=== PATIENT | male | born 1980 | race Caucasian/White ===

== ENCOUNTER 2022-10-30 01:44 | Emergency (ER) | payer OTHER, SELFPAY ==
[2022-10-30 02:01] VITALS: BP 113/67; PULSE 74; RESP 18; TEMP 36.6; O2SAT 98; BMI 18.6
--- NOTE | 2022-10-30 02:17 | W.ED.PSYCHS ---
HPI - Psych General: Chief Complaint: Psychiatric Symptoms Stated Complaint: Wants to be 89 Time Seen by Provider: 10/30/22 02:17 History of Present Illness: Mr. Shi is a 42-year-old male with history of depression not currently on medications presenting to the emergency department with depression and suicidal ideation. He reports worsening symptoms for few months and he felt more suicidal tonight. He denies a specific plan but says he would do it one way or another . He notes associated poor sleep and appetite with his depression. Overall course of symptoms has worsened. Intensity is severe. He has issues with chronic pain however no other acute medical concerns. Supplemental information provided by law enforcement is that his stated he was carrying around a gun earlier and put in a backpack which she managed to take away from him. Onset (ago): month(s) Duration: getting worse History of same: Yes Relieving factors: none Exacerbating factors: none Context: significant life stressor Associated psychiatric symptoms: depression and suicidal ideation Associated symptoms: Reports no associated symptoms Review of Systems General: Reports: 10 or more systems reviewed and unremarkable except in HPI and below PFSH ED PFSH: Medical History Degenerative disc disease History of MRSA infection Social History Smoking and tobacco status: current every day smoker Physical Exam Const: COMMON NORMALS: alert GENERAL APPEARANCE: cooperative and well developed HENMT: COMMON NORMALS: normocephalic and atraumatic HEAD & SCALP: normocephalic and atraumatic Eye: COMMON NORMALS: conjunctivae normal CONJUNCTIVA: Yes conjunctivae normal SCLERA: sclerae normal Neck/C-Spine: COMMON NORMALS: supple GENERAL: Yes trachea midline Resp: COMMON NORMALS: clear to auscultation bilaterally EFFORT & INSPECTION: Yes able to speak in complete sentences AUSCULTATION: clear to auscultation bilaterally Cardio: COMMON NORMALS: regular rate and regular rhythm RATE: regular rate RHYTHM: regular rhythm GI: COMMON NORMALS: Soft to palpation PALPATION: Yes Soft to palpation and No Tenderness to palpation present (GI) Extremity: GENERAL: Yes normal exam except as noted and No edema Neuro: COMMON NORMALS: moves all extremities SENSORIUM/ORIENTATION: Yes alert and No Orientation impaired Psych: COMMON NORMALS: mental status grossly normal and Normal thought process present MOOD & AFFECT: Yes depressed mood THOUGHT PROCESS: Normal thought process present THOUGHT CONTENT: Yes Suicidality present and No Hallucination(s) present Course Vital Signs: Vital signs: Vital Signs Temperature 98 F 10/30/22 02:01 Pulse Rate 82 10/30/22 20:39 Respiratory Rate 16 10/30/22 20:39 Blood Pressure 105/65 10/30/22 16:00 Pulse Oximetry 97 10/30/22 16:00 Oxygen Delivery Me thod 10/30/22 02:01 [facility] - Psych Medical Decision Making 42-year-old gentleman with history of depression not currently on treatment presenting to the emergency department for worsening suicidal ideation. Patient is calm, cooperative, nontoxic in appearance. EKG shows sinus rhythm with no STEMI. Unremarkable hematologic and metabolic panel. No evidence of urinary tract infection. TSH normal. Toxic ingestions negative. UDS only positive for THC which the patient endorses having a medical card for. Chest x-ray with no lobar consolidation or pneumothorax. Given severity of symptoms including significant suicidal ideation with possible actions of furtherance I believe that inpatient management is appropriate. Based on ED evaluation at this point there is no obvious condition that would preclude the patient from inpatient management of psychiatric concerns. We do not have adult male psychiatric inpatient bed availability at this time and therefore we will look for placement. Medical Records I reviewed the patient's medical records. Lab Data I reviewed the patient's lab results. 10/30/22 02:19 10/30/22 02:19 Radiology Impressions Chest X-Ray 10/30/22 02:18 IMPRESSION: 1. Mild pulmonary hyperexpansion. 2. No acute findings. Laboratory Results WBC 8.9 10^3/uL (4.0-10.0) 10/30/22 02:19 RBC 4.74 10^6/uL (4.1-5.3) 10/30/22 02:19 Hgb 14.4 g/dL (11.7-16.6) 10/30/22 02:19 Hct 44.5 % (42.0-52.0) 10/30/22 02:19 MCV 93.9 fl (80-94) 10/30/22 02:19 MCH 30.4 pg (28.0-34.0) 10/30/22 02:19 MCHC 32.4 g/dL (30.0-36.0) 10/30/22 02:19 RDW 13.1 % (12.1-15.1) 10/30/22 02:19 Plt Count 291 10^3/cmm (130-400) 10/30/22 02:19 MPV 9.8 fL (7.4-10.4) 10/30/22 02:19 Neut % (Auto) 49.9 % 10/30/22 02:19 Lymph % (Auto) 38.5 % 10/30/22 02:19 [place] % (Auto) 9.6 % 10/30/22 02:19 Eos % (Auto) 1.5 % 10/30/22 02:19 Baso % (Auto) 0.3 % 10/30/22 02:19 Neut # (Auto) 4.44 10^3/uL (1.8-7.7) 10/30/22 02:19 Lymph # (Auto) 3.4 10^3/uL (0.8-4.8) 10/30/22 02:19 [place] # (Auto) 0.9 10^3/uL (0.2-0.9) 10/30/22 02:19 Eos # (Auto) 0.1 10^3/uL (0.0-0.8) 10/30/22 02:19 Baso # (Auto) 0.0 10^3/uL (0.0-0.1) 10/30/22 02:19 Nucleated RBC % (auto) 0 % 10/30/22 02:19 Nucleated RBCs # 0.0 /100WBC 10/30/22 02:19 Sodium 139 mmol/L (136-145) 10/30/22 02:19 Potassium 4.4 mmol/L (3.5-5.1) 10/30/22 02:19 Chloride 104 mmol/L (98-107) 10/30/22 02:19 Carbon Dioxide 27 mmol/L (22-29) 10/30/22 02:19 Anion Gap 12.4 (5-19) 10/30/22 02:19 BUN 11 mg/dL (6-20) 10/30/22 02:19 Creatinine 0.8 mg/dL (0.7-1.2) 10/30/22 02:19 GFR Calculation 107.1 mL/min (90-130) 10/30/22 02:19 Glucose 91 mg/dL (65-115) 10/30/22 02:19 Calculated Osmolality 287 mOsm/kg (285-295) 10/30/22 02:19 Calcium 9.5 mg/dL (8.5-10.5) 10/30/22 02:19 Total Bilirubin 0.2 mg/dL (0.15-1.2) 10/30/22 02:19 AST 26 U/L (0-40) 10/30/22 02:19 ALT 30 U/L (0-41) 10/30/22 02:19 Alkaline Phosphatase 94 U/L (40-130) 10/30/22 02:19 Total Protein 7.4 g/dL (6.6-8.7) 10/30/22 02:19 Albumin 4.7 g/dL (3.5-5.2) 10/30/22 02:19 Globulin 2.7 g/dL (1.3-4.6) 10/30/22 02:19 TSH 3.51 uIU/mL (0.27-4.20) 10/30/22 02:19 Urine Color Colorless (Yellow) 10/30/22 02:18 Urine Appearance Clear (CLEAR) 10/30/22 02:18 Urine pH 7 (5-7) 10/30/22 02:18 Ur Specific [place] 1.010 (1.005-1.030) 10/30/22 02:18 Urine Protein Neg (Negative) 10/30/22 02:18 Urine Glucose (UA) Norm (Normal) 10/30/22 02:18 Urine Ketones Negative (Negative) 10/30/22 02:18 Urine Blood Neg (Negative) 10/30/22 02:18 Urine Nitrate Negative (Negative) 10/30/22 02:18 Urine Bilirubin Neg (Negative) 10/30/22 02:18 Urine Urobilinogen Norm mg/dL (Negative) 10/30/22 02:18 Ur Leukocyte Esterase Negative (Negative) 10/30/22 02:18 Salicylates < 0.3 mg/dL (3-10) L 10/30/22 02:19 Urine Opiates Screen Negative ng/mL (Negative) 10/30/22 02:18 Acetaminophen < 5.0 ug/mL (10-30) L 10/30/22 02:19 Ur Barbiturates Screen Negative ng/mL (Negative) 10/30/22 02:18 Ur Phencyclidine Scrn Negative ng/mL (Negative) 10/30/22 02:18 Ur Amphetamines Screen Negative ng/mL (Negative) 10/30/22 02:18 U Benzodiazepines Scrn Negative ng/mL (Negative) 10/30/22 02:18 Urine Cocaine Screen Negative ng/mL (Negative) 10/30/22 02:18 U Marijuana (THC) Screen Positive ng/mL (Negative) H 10/30/22 02:18 Ethyl Alcohol < 10 mg/dL (0-10) 10/30/22 02:19 Influenza Type A Ag negative (Negative) 10/30/22 04:07 Influenza Type B Ag negative (Negative) 10/30/22 04:07 SARS-CoV-2 Ag (Rapid) negative (Negative) 10/30/22 04:07 Discharge Plan Discharge Patient Disposition: Xfer Psychiatric Hosp Clinical Impression: Suicidal ideation Condition: Stable Coding Level of Care Code ED Director Business Development for [employer] Fwd Exam Comprehensive
--- NOTE | 2022-10-30 02:18 | XRR_ITS ---
PROCEDURE INFORMATION: Exam: XR Chest Exam date and time: 10/30/2022 2:21 AM Age: 42 years old Clinical indication: Screening exam; Other screening; Patient HX: Medical clearance for psych transfer; Additional info: Psych clearance TECHNIQUE: Imaging protocol: Radiologic exam of the chest. Views: 1 view. COMPARISON: No relevant prior studies available. FINDINGS: Lungs: There is no evidence of focal pulmonary consolidation or ground-glass opacities. There is mild pulmonary hyperexpansion. Pleural spaces: No pleural effusion or pneumothorax. Heart/Mediastinum: The heart and mediastinum are normal in size. Bones/joints: Unremarkable. XR/XR chest 1V portable [id number] IMPRESSION: 1. Mild pulmonary hyperexpansion. 2. No acute findings.
--- NOTE | 2022-10-30 02:18 | ECG_ITS ---
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 Measurements Intervals [place] Rate: 62 P: 77 [place]: 191 QRS: 87 QRSD: 114 T: 74 QT: 394 QTc: 400 Interpretive Statements SINUS RHYTHM INCOMPLETE RIGHT BUNDLE BRANCH BLOCK [90+ ms QRS DURATION, TERMINAL R IN V1/V2, 40+ ms S IN I/aVL/V4/V5/V6] No previous ECG available for comparison Electronically Signed On 10-30-2022 16:48:33 SEC REPORTING CONSULTANT by Citlalli Perez M.D. [id number]
[2022-10-30 02:26] LABS: Basophils % 0.3 %; Eosinophils # 0.1 10^3/uL (0.0-0.8); Eosinophils % 1.5 %; Hematocrit 44.5 % (42.0-52.0); Hemoglobin 14.4 g/dL (11.7-16.6); Lymphocytes # 3.4 10^3/uL (0.8-4.8); Lymphocytes % 38.5 %; Mean Corpuscular HGB Conc 32.4 g/dL (30.0-36.0); Mean Corpuscular Hemoglobin 30.4 pg (28.0-34.0); Mean Corpuscular Volume 93.9 fl (80-94); Mean Platelet Volume 9.8 fL (7.4-10.4); Monocytes # 0.9 10^3/uL (0.2-0.9); Monocytes % 9.6 %; Neutrophils # 4.44 10^3/uL (1.8-7.7); Neutrophils % 49.9 %; Nucleated Red Blood Cells % 0 %; Platelet Count 291 10^3/cmm (130-400); Red Blood Count 4.74 10^6/uL (4.1-5.3); Red Cell Distribution Width 13.1 % (12.1-15.1); White Blood Count 8.9 10^3/uL (4.0-10.0)
[2022-10-30 02:44] LABS: Add Urine Microscopic? NO; Charge for UA Resulting for Rev
[2022-10-30 02:48] LABS: Urine Appearance Clear (CLEAR); Urine Color Colorless (Yellow); pH Urine 7 (5-7)
[2022-10-30 02:49] LABS: Bilirubin Urine Neg (Negative); Blood Urine Neg (Negative); Glucose Urine UA Norm (Normal); Ketones Urine Negative (Negative); Leukocyte Esterase Urine Negative (Negative); Nitrate Urine Negative (Negative); Protein Urine Neg (Negative); Urobilinogen Urine Norm (Negative)
[2022-10-30 02:54] LABS: Amphetamines Screen Urine Negative (Negative); Barbiturates Screen Urine Negative (Negative); Benzodiazepines Screen Urine Negative (Negative); Cocaine Screen Urine Negative (Negative); Opiate Screen Urine Negative (Negative); PCP Screen Urine Negative (Negative); THC Screen Urine Positive (Negative)
[2022-10-30 02:54] LABS: Alanine Aminotransferase 30 U/L (0-41); Albumin Level 4.7 g/dL (3.5-5.2); Alkaline Phosphatase 94 U/L (40-130); Anion Gap 12.4 (5-19); Aspartate Amino Transferase 26 U/L (0-40); Blood Urea Nitrogen 11 mg/dL (6-20); Calcium 9.5 mg/dL (8.5-10.5); Carbon Dioxide 27 mmol/L (22-29); Chloride 104 mmol/L (98-107); Globulin 2.7 g/dL (1.3-4.6); Glomerular Filtration Rate 107.1 mL/min (90-130); Glucose 91 mg/dL (65-115); Osmolality Calculated 287 mOsm/kg (285-295); Potassium 4.4 mmol/L (3.5-5.1); Sodium 139 mmol/L (136-145); Thyroid Stimulating Hormone 3.51 uIU/mL (0.27-4.20); Total Bilirubin 0.2 mg/dL (0.15-1.2); Total Protein 7.4 g/dL (6.6-8.7)
[2022-10-30 02:56] LABS: Acetaminophen < 5.0 ug/mL (10-30); Alcohol Level < 10 mg/dL (0-10); Salicylate < 0.3 mg/dL (3-10)
[2022-10-30 04:33] LABS: Influenza A by IFA negative (Negative); Influenza B by IFA negative (Negative)
[2022-10-30 04:34] LABS: SARS Covid-2 Antigen negative (Negative)
[2022-10-30 08:15] VITALS: BP 111/75; PULSE 60; RESP 16; O2SAT 98
[2022-10-30 11:00] VITALS: BP 95/63; PULSE 66; RESP 17; O2SAT 96
[2022-10-30 14:26] VITALS: BP 115/68; PULSE 66; RESP 18; O2SAT 97
[2022-10-30] MEDS: acetaminophen 325 mg Tablet 650 MG PO (14:38)
[2022-10-30 16:00] VITALS: BP 105/65; PULSE 69; RESP 16; O2SAT 97
--- NOTE | 2022-10-30 17:51 | PC.NURSE ---
PT CURRENTLY RESTING QUIETLY IN BED. PT AWAKE AT THIS TIME. PT IN NO VISUAL FORM OF DISTRESS. PT STATES HE DOES NOT NEED ANYTHING AT THIS TIME. EMS INFORMED [facility] STAFF THAT THEY WILL BE HERE AT 2030 FOR PICKUP. PT NOTIFIED.
--- NOTE | 2022-10-30 18:26 | PC.NURSE ---
WHILE AT DOORWAY PT IS RESTING QUIETLY ON RIGHT SIDE IN NAD. PT HAS GOOD CHEST RISE AND FALL.
--- NOTE | 2022-10-30 18:59 | PC.NURSE ---
REPORT GIVEN TO [facility].
--- NOTE | 2022-10-30 20:22 | PC.NURSE ---
Erick from [facility] states that the patient will be transported by Midnight at the latest.
[2022-10-30 20:39] VITALS: PULSE 82; RESP 16
== END 2022-10-30 20:40 ==
PROVIDERS: Emergency Provider Emergency Medicine
DX: R45.851 Suicidal ideations (principal); Z20.822 Contact with and (suspected) exposure to COVID-19; F17.210 Nicotine dependence, cigarettes, uncomplicated
CPT/HCPCS: 71045; 80053; 80306; 80307; 81003; 84443; 85025; 87426; 87804; 93005; 99285